=== PATIENT | female | born 1965 | race African-American/Black ===

== ENCOUNTER 2017-01-16 10:39 | Emergency (ER) | payer SELFPAY ==
[2017-01-16 10:52] VITALS: BP 124/74; PULSE 80; TEMP 98.2; BMI 30.6
--- NOTE | 2017-01-16 12:00 | PDOC ---
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 Presents to the ER with blue discoloration to the right hand, and right lower leg. Denies any pain, pruritis, redness, swelling. Denies injury. Allergies: No known allergies Medications: None Family History: Non-contributory Social History: Denies smoking, alcohol use, or IVDU Review of Systems GENERAL/CONSTITUTIONAL: No fever or chills. No weakness. No weight change. HEAD, EYES, EARS, NOSE AND THROAT: No change in vision. No ear pain or discharge. No sore throat. CARDIOVASCULAR: No chest pain or shortness of breath. RESPIRATORY: No cough, wheezing, or hemoptysis. GASTROINTESTINAL: No nausea, vomiting, diarrhea or constipation. No rectal bleeding. GENITOURINARY: No dysuria, frequency, or change in urination. MUSCULOSKELETAL: No joint or muscle swelling or pain. No neck or back pain. SKIN : No rash or easy bruising. Superficial blue discoloration to left hand and left lower leg. NEUROLOGIC: No headache, vertigo, loss of consciousness, or loss of sensation. PSYCHIATRIC: No depression or anxiety. ENDOCRINE: No increased thirst. No abnormal weight change. HEMATOLOGIC/LYMPHATIC: No anemia, easy bleeding, or history of blood clots. ALLERGIC/IMMUNOLOGIC: No hives or skin allergy. No latex allergy. Physical Exam: GENERAL: The patient is awake, alert, and fully oriented, in no acute distress. EYES: Pupils equal, round and reactive to light, extraocular movements intact, sclera anicteric, conjunctiva clear. ENT: Ears normal, nares patent, oropharynx clear without exudates. Moist mucous membranes. No uvula deviation NECK: Normal range of motion, supple without lymphadenopathy, JVD, or masses. LUNGS: Breath sounds equal, clear to auscultation bilaterally. No wheezes, and no crackles. HEART: Regular rate and rhythm, normal S1 and S2 without murmur, rub or gallop. ABDOMEN: Soft, nontender, normoactive bowel sounds. No guarding, no rebound. No masses. No bruising or abrasions RECTAL : Guaiac negative, normal rectal tone. MUSCULOSKELETAL: Normal range of motion, no edema. No clubbing or cyanosis. No cords, erythema, or tenderness. No CVA Tenderness with fist. NEUROLOGICAL: Cranial nerves II through XII grossly intact. Normal speech, normal gait. PSYCH: Normal mood, normal affect. SKIN: Warm, Dry, normal turgor, no rashes or lesions noted. Blue discoloration to left hand, superficial and left lower extremity. Past History - Past Medical History Allergies/Adverse Reactions: Allergies Allergy/AdvReac Type Severity Reaction Status Date / Time No Known Allergies Allergy Verified 01/16/17 10:52 Home Medications: Ambulatory Orders Simvastatin [Zocor -] 10 mg PO DAILY 01/16/17 Cardiac Disorders: Yes Hypercholesterolemia: Yes - Psycho/Social/Smoking Cessation Hx Suicidal Ideation: No Smoking History: Never smoked Have you smoked in the past 12 months: No Information on smoking cessation initiated: No Hx Alcohol Use: No Drug/Substance Use Hx: No Substance Use Type: None *Physical Exam - Vital Signs Last Vital Signs Temp Pulse Resp BP Pulse Ox 98.2 F 80 16 124/74 98 01/16/17 10:41 01/16/17 10:41 01/16/17 10:41 01/16/17 10:41 01/16/17 10:41 Medical Decision Making - Medical Decision Making 01/16/17 13:31 A/P: Patient here for discoloration to left hand and left lower leg, area superficial cleansed with alcohol and soap and was able to be removed appears to be ink. Patient may have touched something which caused superficial discoloration. Patient was satisfied with care, will DC patient home, cleanse skin. *DC/Admit/Observation/Transfer Diagnosis at time of Disposition: Discoloration of skin of hand - Discharge Dispostion Disposition: HOME Condition at time of disposition: Good Admit: No - Patient Instructions Additional Instructions: If any increased redness, swelling or signs of infection return to the ER.
== END 2017-01-16 12:06 | disposition home or self-care (01) ==
LOC: JERFT 10:39
DX: L98.8 Other specified disorders of the skin and subcutaneous tissue (principal)
CPT/HCPCS: 99281-25